=== PATIENT | female | born 1990 | race Caucasian/White ===

== ENCOUNTER 2023-06-21 18:59 | Emergency (ER) | payer SELFPAY ==
[2023-06-21 19:10] VITALS: BP 132/88; PULSE 79; RESP 16; O2SAT 98; BMI 34.3
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
[2023-06-21] MEDS: MAGNESIUM SULFATE IN WATER 50 ML IV (19:56)
[2023-06-21] MEDS: DIPHENHYDRAMINE HCL 50 MG/ML (1ML) VIAL IV (19:57)
[2023-06-21] MEDS: KETOROLAC TROMETHAMINE 30 MG/ML VIAL IVP (19:57)
[2023-06-21 19:58] LABS: Basophils Absolute Auto 0.1 10^3/uL (0.0-0.1); Basophils Percent Auto 0.5 % (0.2-2.0); Eosinophils Absolute Auto 0.1 10^3/uL (0.0-0.7); Eosinophils Percent Auto 0.9 % (0.9-7.0); Hematocrit 43.3 % (36.0-48.0); Hemoglobin 14.3 g/dL (12.0-16.0); Immature Granulocytes Abs Auto 0.04 10^3/uL (0.00-0.03); Immature Granulocytes Pct Auto 0.3 % (0.0-0.5); Lymphocytes Percent Auto 15.7 % (20.5-60.0); Mean Corpuscular Hemoglobin 30.4 pg (26.7-34.0); Mean Corpuscular Volume 92.1 fL (81.0-99.0); Mean Platelet Volume 9.9 fL (9.5-13.5); Monocytes Absolute Auto 0.6 10^3/uL (0.3-0.8); Monocytes Percent Auto 4.5 % (1.7-12.0); Neutrophils Percent Auto 78.1 % (43.0-75.0); Platelet Count 449 10^3/uL (150-450); Red Cell Distribution Width 13.7 % (11.0-15.0); White Blood Count 12.8 10^3/uL (4.0-11.0)
[2023-06-21 20:12] LABS: Erythrocyte Sedimentation Rate 38 mm/hr (<=20)
[2023-06-21 20:17] LABS: BUN Creatinine Ratio 13.1; Calcium 9.3 mg/dL (8.5-10.1); Carbon Dioxide 24.9 mmol/L (21.0-32.0); Chloride 102 mmol/L (98-107); Estimated GFR (African America >60 (>=60); Estimated GFR (Non-African Ame >60 (>=60); Glucose 108 mg/dL (74-106); Potassium 3.9 mmol/L (3.5-5.1); Sodium 136 mmol/L (136-145)
[2023-06-21 20:20] LABS: C Reactive Protein <0.2 mg/dL (<=1.0)
== END 2023-06-21 21:06 | disposition home or self-care (01) ==
PROVIDERS: Emergency Provider Internal Medicine
DX: M54.6 Pain in thoracic spine (principal)
CPT/HCPCS: 36415; 80048; 85025; 85652; 86140; 96365; 96375; 99284

== ENCOUNTER 2023-06-23 13:54 | Emergency (ER) | payer SELFPAY ==
[2023-06-23 13:58] VITALS: BP 138/85; PULSE 72; RESP 20; TEMP 36.4; O2SAT 99; BMI 34.3
--- NOTE | 2023-06-23 14:22 | XR_ITS ---
[address] [address] Patient Name: GALDINO DOUGLAS MRN: [id number] date: 1990 Sex: F Assigned Patient Location: ER Current Patient Location: ER Accession/Order Number: [id number] Exam Date: 06/23/2023 14:50 Report Date: 06/23/2023 15:05 At the request of: DALI PEREZ Procedure: XR thoracic spine 3V EXAM: XR thoracic spine 3V HISTORY: pain COMPARISON: None. TECHNIQUE: 3 view study FINDINGS: Vertebral bodies and disc spaces are normal in height. Pedicles are intact. Paravertebral soft tissues are unremarkable. XR/XR thoracic spine 3V IMPRESSION: Thoracic spine examination within normal limits. No evidence for acute fracture or traumatic malalignment. Electronically authenticated by: Ashley ALFONSO Date: 06/23/2023 15:05
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
[2023-06-23] MEDS: ONDANSETRON 4 MG RAPDIS TABLET SL (15:42)
== END 2023-06-23 15:55 | disposition home or self-care (01) ==
PROVIDERS: Emergency Provider Emergency Medicine Emergency Medical Services
DX: M54.6 Pain in thoracic spine (principal)
CPT/HCPCS: 72072; 99284